=== PATIENT | female | born 1975 | race Caucasian/White ===

== ENCOUNTER 2022-11-14 10:05 | Outpatient (CLI) | payer BC, SELFPAY ==
--- NOTE | ~2022-11-14 | CT_ITS ---
CT Scan of the Chest without Contrast: Clinical Indication: Right lower lobe infiltrate Technique: Contiguous sections were acquired throughout the chest without intravenous contrast. Dose reduction technique was used on this scan by utilizing automated exposure control and iterative recon struction technique. The dose-length product (DLP) was 135.11 mGy-cm. COMPARISON: 09/19/2022 Findings: There is no evidence of any significant mediastinal, hilar or axillary lymphadenopathy. The mediastin al soft tissues appear normal. There is no evidence of pleural or pericardial effusion. Right basilar airspace disease is mildly improved from prior exam, with local areas of irregular cons olidation or nodularity, with minimal bronchiectasis in this region. No other pulmonary abnormality s een. Images through the upper abdomen reveal cholecystectomy clips and hepatic cyst. Impression: Improving airspace disease at the right lower lobe, suggestive of improving pneumonia/infectious proc ess. Reviewed, dictated and finalized at [facility]. Impression: Improving airspace disease at the right lower lobe, suggestive of improving pne umonia/infectious process.
== END 2022-11-14 10:06 | disposition home or self-care (01) ==
LOC: ANHIMG 10:09
PROVIDERS: PCP Internal Medicine; Visit Provider Internal Medicine Pulmonary Disease
DX: R91.8 Other nonspecific abnormal finding of lung field (principal)
CPT/HCPCS: 71250